=== PATIENT | female | born 1955 | race Caucasian/White ===

== ENCOUNTER → 2017-06-23 | Outpatient (CLI) | payer BC ==
[~2017-06-23] MED LIST: APIX5TAB PO; ASPI-13 PO; CHOL5000 PO; DILT180C72 PO; LACT1CAP35 PO; MULT-717 PO; OMEG-28 PO; RED600CA2 PO; SOTA80TA18 PO
[2017-06-23 11:17] LABS: BASOPHILS # (AUTO) 0.04 x10^3/uL (0-0.1); BASOPHILS % (AUTO) 1 % (0-1); EOSINOPHILS # (AUTO) 0.16 x10^3/uL (0-0.4); EOSINOPHILS % (AUTO) 2 % (1-7); LYMPHOCYTES # (AUTO) 2.19 x10^3/uL (1-3.4); LYMPHOCYTES % (AUTO) 30 % (22-44); MD NO; MEAN CORPUSCULAR HGB CONC 33.3 g/dL (32.4-35.8); MEAN CORPUSCULAR VOLUME 93.1 fL (80-100); MEAN PLATELET VOLUME 9.1 fL (7.4-10.4); MONOCYTES # (AUTO) 0.77 x10^3/uL (0.2-0.8); MONOCYTES % (AUTO) 11 % (2-9); NEUTROPHILS # (AUTO) 4.08 x10^3/uL (1.8-6.8); NEUTROPHILS % (AUTO) 56 % (42-75); PLATELET COUNT 302 x10^3/uL (130-400); RED BLOOD COUNT 4.95 x10^6/uL (3.82-5.3); RED CELL DISTRIBUTION WIDTH 13.4 % (9.6-15.2)
[2017-06-23 11:26] LABS: ALANINE AMINOTRANSFERASE 30 U/L (12-78); ANION GAP 6 mmol/L (5-15); CHLORIDE 105 mmol/L (98-107); CREATININE 0.66 mg/dL (0.55-1.02)
[2017-06-23 11:28] LABS: ALKALINE PHOSPHATASE 78 U/L (45-117); BILIRUBIN,TOTAL 0.7 mg/dL (0.2-1.0)
== END | disposition home or self-care (01) ==
LOC: STAR 10:06
PROVIDERS: ATTEND Internal Medicine Cardiovascular Disease
DX: Z01.818 Encounter for other preprocedural examination (principal); I48.91 Unspecified atrial fibrillation
CPT/HCPCS: 36415; 80053; 85025

== ENCOUNTER → 2017-06-23 | Outpatient (CLI) | payer BC ==
[~2017-06-23] MED LIST changes: -APIX5TAB PO; +OMNIPAQUE 350 MG/ML, 150 ML BOTTLE ONE; -SOTA80TA18 PO
== END ==
LOC: CFH 08:40
PROVIDERS: ATTEND Internal Medicine Cardiovascular Disease
DX: I48.91 Unspecified atrial fibrillation (principal); I49.1 Atrial premature depolarization
CPT/HCPCS: 71020; 75572; 82565; Q9967

== ENCOUNTER 2017-06-30 06:31 | Observation (INO) | payer BC ==
[2017-06-23 11:57] VITALS: BP 116/77
[~2017-06-30] VITALS: Ht 170.2 cm; Wt 67.9 kg
[~2017-06-30 06:31] MED LIST changes: -OMNIPAQUE 350 MG/ML, 150 ML BOTTLE ONE
[2017-06-30] MEDS ORDERED: SODIUM CHLORIDE 0.9% 1,000 ML IV SCH ×2 (06:43→07:00)
[2017-06-30] MEDS ORDERED: PROTAMINE SULFATE 10 MG/ML, 5ML ONE (07:46)
[2017-06-30] MEDS ORDERED: HEPARIN 1,000 UNITS/ML, 10ML ONE (07:46)
[2017-06-30] MEDS ORDERED: MIDAZOLAM 1 MG/ML, 5ML ONE (07:51)
[2017-06-30] MEDS ORDERED: FENTANYL PF 250 MCG/5ML ONE (07:51)
[2017-06-30] MEDS ORDERED: SUCCINYLCHOLINE 20 MG/ML, 10ML ONE (08:06)
[2017-06-30] MEDS ORDERED: DEXAMETHASONE 4 MG/ML, 5ML ONE (08:06)
[2017-06-30] MEDS ORDERED: EPHEDRINE 50 MG/ML, 1ML ONE (08:06)
[2017-06-30] MEDS ORDERED: ROCURONIUM 10 MG/ML,10ML ONE (08:06)
[2017-06-30] MEDS ORDERED: PROPOFOL 10 MG/ML, 20ML ONE (08:06)
[2017-06-30] MEDS ORDERED: ONDANSETRON 2MG/ML, 2ML ONE (08:06)
[2017-06-30] MEDS ORDERED: LIDOCAINE 2%, 20ML ONE (08:21)
[2017-06-30] MEDS ORDERED: ISOPROTERENOL 0.2MG/ML, 5ML ONE (09:11)
[2017-06-30] MEDS: APIXABAN 5 MG TABLET PO SCH ×2 (11:00→11:45)
[2017-06-30] MEDS ORDERED: LABETALOL 5MG/ML, 20ML IV PRN (11:30)
[2017-06-30] MEDS ORDERED: HYDROmorphone 1 MG/ML, 1ML IV PRN (11:30)
[2017-06-30] MEDS ORDERED: MIDAZOLAM 1 MG/ML, 2ML IV PRN (11:30)
[2017-06-30] MEDS ORDERED: ACETAMINOPHEN 325 MG TABLET PO PRN (11:30)
[2017-06-30] MEDS ORDERED: MEPERIDINE/PF 25MG/0.5ML IVPush PRN (11:30)
[2017-06-30] MEDS ORDERED: OXYcodone 5 MG/5 ML ORAL.SOL UDC PO PRN (11:30)
[2017-06-30] MEDS ORDERED: PROMETHAZINE 25 MG/ML, 1ML IV PRN (11:30)
[2017-06-30] MEDS ORDERED: hydrALAzine 20 MG/ML, 1ML IV PRN (11:30)
[2017-06-30] MEDS ORDERED: FENTANYL PF 100 MCG/2ML IV PRN (11:30)
[2017-06-30] MEDS ORDERED: ONDANSETRON 2MG/ML, 2ML IVPush PRN (11:30)
[2017-06-30] MEDS ORDERED: ALBUTEROL SULFATE 2.5 MG/3 ML NPPB PRN (11:30)
[2017-06-30] MEDS ORDERED: ACETAMINOPHEN 650 MG/20.3 ML UDC ONE (11:49)
[2017-06-30] MEDS ORDERED: OXYcodone 5 MG/5 ML ORAL.SOL UDC ONE (11:49)
[2017-06-30] MEDS: ACETAMINOPHEN 325 MG TABLET PO PRN (11:51)
[2017-06-30 13:12] VITALS: BP 115/87
[2017-06-30 19:36] VITALS: BP 103/68
[2017-06-30] MEDS ORDERED: ZOLPIDEM 5MG TABLET PO PRN (21:00)
[2017-07-01 04:00] VITALS: BP 103/65
[2017-07-01 08:00] VITALS: BP 116/73
[2017-07-01] MEDS: APIXABAN 5 MG TABLET PO SCH ×2 (08:03→21:14)
[2017-07-01] MEDS: ACETAMINOPHEN 325 MG TABLET PO PRN ×3 (10:58→21:14)
[2017-07-01] MEDS ORDERED: MELATONIN 5 MG TABLET PO PRN (15:30)
[2017-07-01 15:38] VITALS: BP 120/75
[2017-07-01] MEDS: SOTALOL 80MG TABLET PO SCH (18:20)
[2017-07-01 18:22] VITALS: BP 133/73
[2017-07-02 02:30] VITALS: BP 113/72
[2017-07-02 04:32] VITALS: BP 113/72
[2017-07-02] MEDS: SOTALOL 80MG TABLET PO SCH (06:38)
[2017-07-02] MEDS: APIXABAN 5 MG TABLET PO SCH (10:36)
[2017-07-02] MEDS: ACETAMINOPHEN 325 MG TABLET PO PRN (10:42)
[2017-07-02 10:45] VITALS: BP 110/72
[2017-07-02] MEDS ORDERED: APIX5TAB PO (10:57)
[2017-07-02] MEDS ORDERED: SOTA80TA18 PO (10:57)
== END 2017-07-02 13:01 | disposition home or self-care (01) ==
LOC: CACL 06:31 → CCU 10:46 → 5SO 12:38
PROVIDERS: ADMIT Internal Medicine Cardiovascular Disease; ATTEND Internal Medicine Cardiovascular Disease
DX: I49.1 Atrial premature depolarization (principal); I48.91 Unspecified atrial fibrillation; I48.92 Unspecified atrial flutter
CPT/HCPCS: 85347; 93005; 93308; 93312; 93321; 93325; 93613; 93621; 93656; 93662; C1730; C1732; C1759; C1766; C1893; C1894; G0378; J0330; J1100; J1644; J2250; J2405; J2704; J2720; J3010; J3490

== ENCOUNTER → 2019-09-20 | Outpatient (CLI) | payer BC ==
[~2019-09-20] MED LIST changes: +APIX5TAB PO; +SOTA80TA18 PO
== END | disposition home or self-care (01) ==
LOC: CVU 13:44
PROVIDERS: ATTEND Nurse Practitioner Family
DX: I65.23 Occlusion and stenosis of bilateral carotid arteries (principal); I08.8 Other rheumatic multiple valve diseases; I48.91 Unspecified atrial fibrillation; I48.92 Unspecified atrial flutter; H53.8 Other visual disturbances
CPT/HCPCS: 93306; 93880

== ENCOUNTER 2019-12-18 12:46 | Outpatient (CLI) | payer BC | END 2019-12-18 23:59 | disposition home or self-care (01) | LOC: CFH 12:46 | PROVIDERS: ATTEND Nurse Practitioner Family | DX: R92.8 Other abnormal and inconclusive findings on diagnostic imaging of breast (principal); N64.4 Mastodynia | CPT/HCPCS: 77066; G0279; 77063 ==

== ENCOUNTER → 2020-05-04 | Outpatient (CLI) | payer BC | END | disposition home or self-care (01) | LOC: STAR 10:49 | PROVIDERS: ATTEND Anesthesiology | DX: Z01.812 Encounter for preprocedural laboratory examination (principal); Z20.828 Contact with and (suspected) exposure to other viral communicable diseases | CPT/HCPCS: 87635 ==

== ENCOUNTER 2020-05-08 09:30 | Observation (INO) | payer BC ==
[~2020-05-08] VITALS: Ht 170.2 cm; Wt 61.4 kg
[2020-05-08 11:06] VITALS: BP 126/83
[2020-05-08 11:23] LABS: BASOPHILS % (AUTO) 1 % (0-1); EOSINOPHILS % (AUTO) 3 % (1-7); LYMPHOCYTES % (AUTO) 35 % (22-44); MEAN CORPUSCULAR HEMOGLOBIN 30.8 pg (27.0-34.8); MONOCYTES % (AUTO) 11 % (2-9); NEUTROPHILS % (AUTO) 50 % (42-75); PLATELET COUNT 228 x10^3/uL (130-400); RED BLOOD COUNT 4.69 x10^6/uL (3.82-5.3); RED CELL DISTRIBUTION WIDTH 13.3 % (9.6-15.2)
[2020-05-08 11:26] LABS: MD NO
[2020-05-08] MEDS ORDERED: SODIUM CHLORIDE 0.9% 1,000 ML IV SCH ×2 (11:30)
[2020-05-08 11:31] LABS: INTERNATIONAL NORMALIZED RATIO 1.04 (0.93-1.1)
[2020-05-08 11:34] LABS: ALANINE AMINOTRANSFERASE 28 U/L (12-78); ALBUMIN 3.8 g/dL (3.4-5.0); ANION GAP 7 mmol/L (5-15); CALCIUM 9.1 mg/dL (8.5-10.1); CHLORIDE 109 mmol/L (98-107); CREATININE 0.57 mg/dL (0.55-1.02)
[2020-05-08 11:36] LABS: ALKALINE PHOSPHATASE 82 U/L (45-117); BILIRUBIN,TOTAL 0.7 mg/dL (0.2-1.0); TOTAL PROTEIN 7.9 g/dL (6.4-8.2)
[2020-05-08] MEDS ORDERED: ROCURONIUM 10 MG/ML,10ML ONE (14:04)
[2020-05-08] MEDS ORDERED: SUCCINYLCHOLINE 20 MG/ML, 10ML ONE (14:04)
[2020-05-08] MEDS ORDERED: ONDANSETRON 2MG/ML, 2ML ONE (14:04)
[2020-05-08] MEDS ORDERED: DEXAMETHASONE 4 MG/ML, 1ML ONE (14:04)
[2020-05-08] MEDS ORDERED: PROPOFOL 10 MG/ML, 20ML ONE (14:04)
[2020-05-08] MEDS ORDERED: MIDAZOLAM 1 MG/ML, 2ML ONE (14:11)
[2020-05-08] MEDS ORDERED: FENTANYL PF 250 MCG/5ML ONE (14:12)
[2020-05-08] MEDS ORDERED: LIDOCAINE 1%, 20ML ONE (14:26)
[2020-05-08] MEDS ORDERED: FENTANYL PF 100 MCG/2ML IV PRN (17:00)
[2020-05-08] MEDS ORDERED: ACETAMINOPHEN 325 MG TABLET PO PRN ×3 (17:00)
[2020-05-08] MEDS ORDERED: ZOLPIDEM 5MG TABLET PO PRN (17:00)
[2020-05-08] MEDS ORDERED: DIPHENHYDRAMINE 50 MG/ML, 1ML IVPush PRN (17:00)
[2020-05-08] MEDS ORDERED: morphine SULFATE 10 MG/ML, 1ML IVPush PRN (17:00)
[2020-05-08] MEDS ORDERED: EPHEDRINE 50 MG/ML, 1ML IM PRN (17:00)
[2020-05-08] MEDS ORDERED: ONDANSETRON 2MG/ML, 2ML IVPush PRN (17:00)
[2020-05-08] MEDS ORDERED: MEPERIDINE/PF 25MG/0.5ML IVPush PRN (17:00)
[2020-05-08] MEDS ORDERED: OXYcodone 5 MG/5 ML ORAL.SOL UDC PO PRN (17:00)
[2020-05-08] MEDS ORDERED: EPHEDRINE 50 MG/ML, 1ML IVPush PRN (17:00)
[2020-05-08] MEDS ORDERED: METOPROLOL 1 MG/ML, 5ML IV PRN (17:00)
[2020-05-08] MEDS ORDERED: PROMETHAZINE 25 MG/ML, 1ML IVPush PRN (17:00)
[2020-05-08] MEDS ORDERED: DIAZEPAM 5 MG/ML, 2ML IVPush PRN (17:00)
[2020-05-08] MEDS ORDERED: APIXABAN 5 MG TABLET ONE (17:09)
[2020-05-08 19:31] VITALS: BP 104/69
[2020-05-08] MEDS: COLCHICINE 0.6 MG CAPSULE PO SCH (20:30)
[2020-05-08] MEDS: SOTALOL 80MG TABLET PO SCH (20:30)
[2020-05-08] MEDS ORDERED: COLCHICINE 0.6 MG CAPSULE PO SCH (21:00)
[2020-05-08] MEDS ORDERED: APIXABAN 5 MG TABLET PO SCH ×2 (21:00)
[2020-05-08] MEDS: APIXABAN 5 MG TABLET PO SCH (23:40)
[2020-05-09 01:10] VITALS: BP 101/65
[2020-05-09] MEDS: SOTALOL 80MG TABLET PO SCH (05:59)
[2020-05-09 06:00] VITALS: BP 108/70
[2020-05-09 08:03] VITALS: BP 118/74
[2020-05-09] MEDS ORDERED: COLC0.6C3 PO (08:17)
[2020-05-09] MEDS ORDERED: APIX5TAB PO (08:17)
[2020-05-09] MEDS ORDERED: SOTA80TA18 PO (08:17)
[2020-05-09] MEDS ORDERED: ATOR20TA PO (08:23)
[2020-05-09] MEDS ORDERED: OMEGA-3/FISH OIL CAPSULE PO SCH (09:00)
[2020-05-09] MEDS ORDERED: CHOLECALCIFEROL (VITAMIN D3) 5000 IU CAP PO SCH (09:00)
[2020-05-09] MEDS ORDERED: TEMPLATE NON-FORMULARY MED. (Red Yeast Rice** 1,200 MG) PO SCH (09:00)
[2020-05-09] MEDS ORDERED: LACTOBACILLUS CHEW TABLET PO SCH (09:00)
[2020-05-09] MEDS ORDERED: MULTIVITAMINS/MINERALS TABLET PO SCH (09:00)
[2020-05-09] MEDS: APIXABAN 5 MG TABLET PO SCH (09:49)
[2020-05-09] MEDS: COLCHICINE 0.6 MG CAPSULE PO SCH (09:49)
== END 2020-05-09 10:30 | disposition home or self-care (01) ==
LOC: CACL 09:30 → ORIP 16:37 → 5SO 18:58 → DCLOUNGE 05-09 10:11
PROVIDERS: ADMIT Internal Medicine Cardiovascular Disease; ATTEND Internal Medicine Cardiovascular Disease
DX: I48.91 Unspecified atrial fibrillation (principal); I48.92 Unspecified atrial flutter; Z79.01 Long term (current) use of anticoagulants; Z88.0 Allergy status to penicillin; Z79.899 Other long term (current) drug therapy
CPT/HCPCS: 36415; 71046; 80053; 85025; 85347; 85610; 93005; 93306; 93312; 93321; 93325; 93613; 93656; 93657; 93662; C1730; C1732; C1759; C1766; C1769; C1894; G0378; J0330; J1100; J2250; J2405; J2704; J3010; J3490